=== PATIENT | male | born 1960 | race Caucasian/White ===

== ENCOUNTER 2016-12-14 12:08 | Emergency (ER) | payer SELFPAY ==
[~2016-12-14] VITALS: Ht 188 cm; Wt 100.6 kg
[2016-12-14 12:13] VITALS: BP 118/83; PULSE 89; RESP 16; TEMP 98.5; O2SAT 96
--- NOTE | 2016-12-14 12:57 | PD ---
HPI Chief Complaint: Injury Time Seen by Provider: 12:25 Travel History International Travel<30 days: No Contact w/Intl Traveler<30days: No Traveled to known affect area: No History of Present Illness HPI 56-year-old male presents emergency department for evaluation of right foot and ankle pain. He reports that 2 days ago he was working out in his yard and rolled his ankle and foot. He reports the pain at that time was very minimal. He reports that when he woke this morning the right foot and ankle were acutely tender and swollen. He denies numbness or tingling in the extremity. He reports discomfort with weightbearing. Pain is constant, aching, relieved with rest, 6 out of 6/10 in severity. No past medical history. No allergies to medications. PFSH Past Medical History Medical History: Denies Significant Hx Kidney Stones: Yes Past Surgical History Surgical History: No Previous Surgery Social History Alcohol Use: No Tobacco Use: No Allergies-Medications (Allergen,Severity, Reaction): Coded Allergies: Bee Sting (Verified Allergy, Intermediate, LOCALIZED SWELLING, 12/14/16) Shrimp (Verified Allergy, Intermediate, RASH, 12/14/16) Reported Meds & Prescriptions Reported Meds & Active Scripts Active No Active Prescriptions or Reported Medications Review of Systems Except as stated in HPI: all other systems reviewed are Neg Physical Exam Narrative GENERAL: Well-nourished, well-developed patient. SKIN: Focused skin assessment warm/dry. No erythema. No ecchymosis. HEAD: Normocephalic. EYES: No scleral icterus. No injection or drainage. NECK: Supple, trachea midline. No JVD or lymphadenopathy. CARDIOVASCULAR: Regular rate and rhythm without murmurs, gallops, or rubs. RESPIRATORY: Breath sounds equal bilaterally. No accessory muscle use. GASTROINTESTINAL: Abdomen soft, non-tender, nondistended. MUSCULOSKELETAL: No cyanosis, 2+ distal pulses. Right foot/ankle: Notable swelling and tenderness over the anterior aspect of the ankle and fifth metatarsal. No deformity. Extremities neurovascularly intact. BACK: Nontender without obvious deformity. No CVA tenderness. Data Data Last Documented VS Vital Signs Date Time Temp Pulse Resp B/P Pulse Ox O2 Delivery O2 Flow Rate FiO2 12/14/16 12:13 98.5 89 16 118/83 96 Orders Ankle, Complete ([id number]) (12/14/16 ) Foot, Complete ([id number]) (12/14/16 ) [facility] Medical Decision Making Medical Screen Exam Complete: Yes Emergency Medical Condition: Yes Differential Diagnosis Ankle fracture versus sprain, metatarsal fracture versus midfoot sprain Narrative Course 56-year-old male presents emergency department for 2 day history of right foot and ankle pain status post twisting injury. On exam the patient has notable swelling and tenderness of the ankle and foot. X-rays pending Negative for fracture Diagnosis Primary Impression: Right ankle sprain Qualified Code: S93.401A - Sprain of right ankle, unspecified ligament, initial encounter Referrals: Primary Care Physician Patient Instructions: Ankle Sprain (ED), General Instructions Additional Instructions: Ice and elevate the extremity. Use crutches as needed for ambulating. Avoid prolonged standing or heavy physical activity. Take ibuprofen as needed for pain and inflammation. Follow-up with her doctor for reevaluation. Scripts Ibuprofen 800 Mg Ris171 Mg PO Q8H PRN (Pain/Inflammation) #30 TAB Prov:Meg Jett 12/14/16 Disposition: 01 DISCHARGE HOME Condition: Stable Meg Jett Dec 14, 2016 12:57
--- NOTE | 2016-12-14 13:00 | RADHPO ---
EXAM DATE/TIME: 12/14/2016 12:38 [facility] COMPARISON: No previous studies available for comparison. INDICATIONS : Right ankle pain after stepping down wrong MEDICAL HISTORY : None. SURGICAL HISTORY : None. ENCOUNTER: Initial ACUITY: 2 days PAIN SCORE: 10/10 LOCATION: Right ankle joint FINDINGS: Three view exam was performed of the right ankle. The bony structures are in normal alignment. No e vidence of fracture, dislocation, or soft tissue swelling. The ankle mortise is intact. Minimal nara ntar spurring is evident. No radiopaque foreign bodies are seen. Bony mineralization is normal. CONCLUSION: Negative for fracture or dislocation. Follow up in 7-10 days is suggested if symptoms persist. Manny Alvarenga MD FACR on December 14, 2016 at 12:57 Board Certified Radiologist. This report was verified electronically.
--- NOTE | 2016-12-14 13:04 | RADHPO ---
EXAM DATE/TIME: 12/14/2016 12:38 [facility] COMPARISON: No previous studies available for comparison. INDICATIONS : Right foot pain after stepping down wrong MEDICAL HISTORY : None. SURGICAL HISTORY : None. ENCOUNTER: Initial ACUITY: 2 days PAIN SCORE: 10/10 LOCATION: Right foot FINDINGS: Three view examination of the right foot demonstrates no soft tissue swelling, dislocation, or fractu re. The tarsal bones appear intact. The interphalangeal and metatarsophalangeal joints are intact. The calcaneus is intact. Bony mineralization is normal. CONCLUSION: Negative for fracture or dislocation. Follow up in 7-10 days is suggested if symptoms persist. Manny Alvarenga MD FACR on December 14, 2016 at 13:02 Board Certified Radiologist. This report was verified electronically.
[2016-12-14] MEDS ORDERED: IBUP800T23 PO (13:12)
== END 2016-12-14 13:29 | disposition home or self-care (01) ==
LOC: PHEFT 12:08
DX: S93.401A Sprain of unspecified ligament of right ankle, initial encounter (principal); X50.1XXA Overexertion from prolonged static or awkward postures, initial encounter
CPT/HCPCS: 73610; 73630; 99283; E0113